=== PATIENT | male | born 1990 | race Two or more races ===

== ENCOUNTER 2023-01-10 11:48 | Emergency (ER) | payer MEDICAID ==
[~2023-01-10] VITALS: Ht 167.6 cm; Wt 55.0 kg
[2023-01-10 11:58] VITALS: O2SAT 99
[2023-01-10 13:13] LABS: BASOPHILS % 0.8 % (0.0-2.0); EOSINOPHILS % 3.3 % (0.0-5.0); HEMATOCRIT. 42.6 % (42.0-52.0); HEMOGLOBIN. 14.7 g/dL (14.0-18.0); LYMPHOCYTES % 27.5 % (20.0-50.0); MEAN CORPUSCULAR HEMOGLOBIN 29.2 pg (28.0-32.0); MEAN CORPUSCULAR VOLUME 84.7 fL (80.0-94.0); MEAN PLATELET VOLUME 7.3 fl (7.4-10.4); MONOCYTES % 8.6 % (2.0-8.0); NEUTROPHILS % 59.8 % (40.0-76.0); PLATELET 235 x1000/uL (130-400); RED BLOOD CELL COUNT 5.02 mill/uL (4.7-6.1); RED CELL DISTRIBUTION WIDTH 12.4 % (11.6-14.6)
[2023-01-10 13:20] LABS: CHLORIDE 107 mEq/L (98-107)
[2023-01-10 13:20] LABS: CLARITY URINE CLEAR (CLEAR); COLOR URINE YELLOW (YELLOW); KETONES URINE NEGATIVE (NEGATIVE); LEUKOCYTE ESTERASE URINE NEGATIVE (NEGATIVE); NITRITE URINE NEGATIVE (NEGATIVE); OCCULT BLOOD URINE NEGATIVE (NEGATIVE); PROTEIN URINE NEGATIVE (NEGATIVE); SPECIFIC GRAVITY URINE 1.031 (1.005-1.030); UROBILINOGEN URINE 0.2 E.U./dL (0.2-1.0)
[2023-01-10] MEDS ORDERED: HYDROCODONE/ACETAMINOPHEN 7.5/325MG TABLET PO PRN (20:30)
[2023-01-10] MEDS ORDERED: FAMO-135 MT (23:13)
[2023-01-10] MEDS ORDERED: ACET-2708 MT (23:13)
[2023-01-10 23:21] VITALS: BP 98/68; PULSE 54; RESP 13; TEMP 98.3
[2023-01-11 13:57] LABS: *AMPHETAMINES SCREEN URINE NEGATIVE (NEGATIVE); *BARBITURATES SCREEN URINE NEGATIVE (NEGATIVE); *BENZODIAZEPINES SCREEN URINE NEGATIVE (NEGATIVE); *COCAINE SCREEN URINE NEGATIVE (NEGATIVE); CANNABINOID URINE SCREEN PRESUMTIVE POSITIVE (NEGATIVE); METHADONE URINE SCREEN NEGATIVE (NEGATIVE); OPIATES URINE SCREEN NEGATIVE (NEGATIVE); PHENCYCLIDINE URINE SCREEN NEGATIVE (NEGATIVE)
== END 2023-01-10 23:35 | disposition home or self-care (01) ==
LOC: ER 11:48
DX: R07.89 Other chest pain (principal)
CPT/HCPCS: 80053; 80305; 81003; 83880; 85025; 84484; 36415; 71045; 93005; 99285; Z7610 ×2